=== PATIENT | female | born 1980 | race Caucasian/White ===

== ENCOUNTER 2018-12-05 23:03 | Emergency (ER) | payer BC ==
[2018-12-05 23:12] VITALS: BP 181/117
[2018-12-05] MEDS ORDERED: Sodium Chloride 0.9% 10 ML Syringe FLUSH PRN (23:27)
[2018-12-05] MEDS ORDERED: Sodium Chloride 0.9% 500 ML IV ONE (23:29)
[2018-12-05] MEDS ORDERED: Ondansetron 4 MG/2 ML SDV IVPUSH ONE (23:29)
--- NOTE | 2018-12-06 01:01 | EDM.PDOC ---
ED HPI GENERAL MEDICAL PROBLEM - General Chief Complaint: Chest Pain Stated Complaint: CHEST PAIN VOMITING Time Seen by Provider: 12/05/18 23:20 Source of Information: Reports: Patient, RN Notes Reviewed - History of Present Illness INITIAL COMMENTS - FREE TEXT/NARRATIVE: 38-year-old female developed some upper abdominal pain a couple of hours ago followed by nausea, vomiting. Has been some radiation of discomfort into her chest but not to her shoulder or arm. She does have history of a gastric sleeve procedure about 4 years ago. She has no current cough or sore throat. No difficulty breathing. She states her stomach has been "a bit off the last several days". Middle Chest Pain Score (Numeric/FACES): 3 - Related Data Allergies Allergy/AdvReac Type Severity Reaction Status Date / Time hydrocodone Allergy Hives Verified 02/17/16 07:25 Home Meds: Home Meds Ibuprofen 600 mg PO Q4HR PRN #30 tablet 02/17/16 [Rx] Multivitamin [Flintstones] 1 tab PO DAILY 02/17/16 [History] Vitamin B Complex 1 tab PO DAILY 02/17/16 [History] Citalopram Hydrobromide [Celexa] 40 mg PO DAILY 12/05/18 [History] Past Medical History Cardiovascular History: Reports: High Cholesterol, Hypertension Gastrointestinal History: Reports: GERD, Irritable Bowel Syndrome Neurological History: Reports: Migraines Psychiatric History: Reports: Anxiety, Depression - Past Surgical History GI Surgical History: Reports: Bariatric Procedure, Cholecystectomy Social & Family History - Family History Family Medical History: Noncontributory - Tobacco Use Smoking Status *Q: Never Smoker - Caffeine Use Caffeine Use: Reports: None - Recreational Drug Use Recreational Drug Use: No ED ROS GENERAL - Review of Systems Review Of Systems: See Below Constitutional: Denies: Fever, Chills HEENT: Denies: Rhinitis, Throat Pain Respiratory: Denies: Shortness of Breath Cardiovascular: Reports: Chest Pain (Lower anterior chest) GI/Abdominal: Reports: Abdominal Pain, Nausea (Upper mid abdomen), Vomiting. Denies: Hematochezia, Melena Musculoskeletal: Denies: Back Pain Skin: Reports: No Symptoms Neurological: Reports: Dizziness ED EXAM, GI/ABD - Physical Exam Exam: See Below General Appearance: Alert, Moderate Distress Eyes: Bilateral: Normal Appearance Throat/Mouth: Normal Inspection, Normal Oropharynx Head: No: Facial Swelling Neck: Supple, Full Range of Motion Respiratory/Chest: No Respiratory Distress, Lungs Clear, Normal Breath Sounds Cardiovascular: Regular Rate, Rhythm GI/Abdominal Exam: Soft, Tender (Upper mid abdomen) Back Exam: No: CVA Tenderness (L), CVA Tenderness (R) Extremities: Normal Inspection, Normal Range of Motion Neurological: Alert, Oriented, No Motor/Sensory Deficits Skin Exam: Warm, Dry, Normal Color Course - Vital Signs Last Recorded V/S: Last Vital Signs Temp 97.6 F 12/05/18 23:06 Pulse 83 12/05/18 23:06 Resp 14 12/05/18 23:06 BP 181/117 H 12/05/18 23:06 Pulse Ox 98 12/05/18 23:06 - Orders/Labs/Meds Orders: Active Orders 24 hr Category Date Time Status EKG 12 Lead [EKG Documentation Completion] [RC] STAT Care 12/05/18 23:28 Active Peripheral IV Care [RC] . DIRECTED Care 12/05/18 23:29 Active Sodium Chloride 0.9% [Saline Flush] Med 12/05/18 23:27 Active 10 ml FLUSH ASDIRECTED PRN Peripheral IV Insertion Adult [OM.PC] Stat Oth 12/05/18 23:28 Ordered Medication Orders Sodium Chloride (Saline Flush) 10 ml FLUSH ASDIRECTED PRN PRN Reason: Keep Vein Open Last Admin: 12/05/18 23:34 Dose: 10 ml Labs: Laboratory Tests 12/05/18 12/05/18 Range/Units 23:35 23:35 WBC 10.46 H (3.98-10.04) K/mm3 RBC 4.67 (3.98-5.22) M/mm3 Hgb 14.3 (11.2-15.7) gm/L Hct 42.3 (34.1-44.9) % MCV 90.6 (79.4-94.8) fl MCH 30.6 (25.6-32.2) pg MCHC 33.8 (32.2-35.5) g/dl RDW Std Deviation 38.6 (36.4-46.3) fL Plt Count 374 H (182-369) K/mm3 MPV 9.4 (9.4-12.3) fl Neut % (Auto) 57.3 (34.0-71.1) % Lymph % (Auto) 33.3 (19.3-51.7) % [place] % (Auto) 7.6 (4.7-12.5) % Eos % (Auto) 0.3 L (0.7-5.8) Baso % (Auto) 0.4 (0.1-1.2) % Neut # (Auto) 6.00 (1.56-6.13) K/mm3 Lymph # (Auto) 3.48 (1.18-3.74) K/mm3 [place] # (Auto) 0.80 H (0.24-0.36) K/mm3 Eos # (Auto) 0.03 L (0.04-0.36) K/mm3 Baso # (Auto) 0.04 (0.01-0.08) K/mm3 Manual Slide Review Abnormal smear Sodium 141 (136-145) mEq/L Potassium 3.3 L (3.5-5.1) mEq/L Chloride 103 (98-107) mEq/L Carbon Dioxide 25 (21-32) mEq/L Anion Gap 16.3 H (5-15) BUN 16 (7-18) mg/dL Creatinine 1.0 (0.55-1.02) mg/dL Est Cr Clr Drug Dosing 62.48 mL/min Estimated GFR (MDRD) > 60 (>60) mL/min BUN/Creatinine Ratio 16.0 (14-18) Glucose 91 (74-106) mg/dL Calcium 9.5 (8.5-10.1) mg/dL Total Bilirubin 0.8 (0.2-1.0) mg/dL AST 58 H (15-37) U/L ALT 43 (14-59) U/L Alkaline Phosphatase 86 (46-116) U/L Troponin I < 0.017 (0.00-0.056) ng/mL Total Protein 7.7 (6.4-8.2) g/dl Albumin 3.7 (3.4-5.0) g/dl Globulin 4.0 gm/dL Albumin/Globulin Ratio 0.9 L (1-2) Meds: Medications Generic Name Dose Route Start Last Admin Trade Name Freq PRN Reason Stop Dose Admin Sodium Chloride 10 ml 12/05/18 23:27 12/05/18 23:34 Saline Flush FLUSH 10 ml ASDIRECTED PRN Administration Keep Vein Open Discontinued Medications Generic Name Dose Route Start Last Admin Trade Name Jostin PRN Reason Stop Dose Admin Sodium Chloride 500 mls @ 999 mls/hr 12/05/18 23:29 12/05/18 23:33 Normal Saline IV 12/05/18 23:59 999 mls/hr .BOLUS ONE Administration Ondansetron HCl 4 mg 12/05/18 23:29 12/05/18 23:34 Zofran IVPUSH 12/05/18 23:30 4 mg ONETIME ONE Administration - Re-Assessments/Exams Free Text/Narrative Re-Assessment/Exam: 12/06/18 01:18 Feeling better after IV Zofran, IV fluid, pain is almost gone, labs EKG including troponin did come back normal. Departure - Departure Time of Disposition: 01:00 Disposition: Home, Self-Care 01 Condition: Fair Clinical Impression: Abdominal pain Qualifiers: Abdominal location: upper abdomen, unspecified Qualified Code(s): R10.10 - Upper abdominal pain, unspecified Vomiting Qualifiers: Vomiting type: unspecified Vomiting Intractability: non-intractable Nausea presence: with nausea Qualified Code(s): R11.2 - Nausea with vomiting, unspecified - Discharge Information Instructions: Nausea and Vomiting, Adult, [id number], Abdominal Pain, Adult, [id number] Referrals: Sara Seo PA [Primary Care Provider] - Forms: ED Department Discharge, ED Return to Work/School Form Additional Instructions: Clear liquids until this afternoon, then very careful bland diet as tolerated, follow-up clinic if symptoms not resolving as expected, return to ED as needed if symptoms worsening in any way. - My Orders Last 24 Hours: My Active Orders 12/05/18 23:27 Sodium Chloride 0.9% [Saline Flush] 10 ml FLUSH ASDIRECTED PRN 12/05/18 23:28 EKG 12 Lead [EKG Documentation Completion] [RC] STAT Peripheral IV Insertion Adult [OM.PC] Stat 12/05/18 23:29 Peripheral IV Care [RC] . DIRECTED - Assessment/Plan Last 24 Hours: My Active Orders 12/05/18 23:27 Sodium Chloride 0.9% [Saline Flush] 10 ml FLUSH ASDIRECTED PRN 12/05/18 23:28 EKG 12 Lead [EKG Documentation Completion] [RC] STAT Peripheral IV Insertion Adult [OM.PC] Stat 12/05/18 23:29 Peripheral IV Care [] . DIRECTED
== END 2018-12-06 01:28 | disposition home or self-care (01) ==
LOC: JD.ED 23:03
DX: R10.10 Upper abdominal pain, unspecified (principal); R11.2 Nausea with vomiting, unspecified; E78.00 Pure hypercholesterolemia, unspecified; I10 Essential (primary) hypertension; F41.9 Anxiety disorder, unspecified; F32.9 Major depressive disorder, single episode, unspecified; Z88.5 Allergy status to narcotic agent; Z79.899 Other long term (current) drug therapy
CPT/HCPCS: 36415; 80053; 84484; 85025; 93005; 96361; 96374; 99284; J2405; J7040